=== PATIENT | male | born 1960 ===

== ENCOUNTER 2017-10-30 10:11 | Day surgery (SDC) | payer MEDICAID ==
[2017-10-25 13:35] VITALS: BMI 34.4
[2017-10-30] MEDS ORDERED: Lidocaine PF 2% (5 ml) Inj (For Cardiac Arrhy) ONE ×2 (10:56→12:04)
[2017-10-30] MEDS ORDERED: Verapamil 2 ML ONE (10:57)
[2017-10-30 10:58] LABS: BASO # 0.03 K/mm3 (0.0-2.0); BASO % 0.3 % (0.0-3.0); EOS # 0.1 (0.0-0.7); EOS % 1.4 % (1.5-5.0); GRAN # 6.72 (1.4-6.5); GRAN % 72.9 % (50.0-68.0); HEMOGLOBIN 14.3 g/dL (14.0-18.0); LYMPH # 1.8 (1.2-3.4); MEAN CELL VOLUME 85.7 fl (80.0-105.0); MEAN PLATELET VOLUME 11.2 fl (7.0-11.0); MONO # 0.6 (0.1-0.6); MONO % 6.4 % (1.0-6.0); RBC 4.77 10^6/uL (3.5-6.1); RED CELL DISTRIBUTION WIDTH 12.4 % (11.5-14.5); WHITE BLOOD COUNT 9.2 10^3/ul (4.5-11.0)
[2017-10-30] MEDS ORDERED: Nitroglycerin 50mg in D5W 50 MG/250 ML BOTTLE IV ONE (10:58)
[2017-10-30] MEDS ORDERED: Iodixanol 320 MG/ML 200 ML BOTTLE IV ONE (10:58)
[2017-10-30] MEDS ORDERED: Iohexol 350mgl/ml 50 ML ONE (10:58)
[2017-10-30 11:08] LABS: BLOOD UREA NITROGEN 9 mg/dL (7-21); CALCIUM 9.5 mg/dL (8.4-10.5); GFR AFRICAN-AMERICAN > 60; GFR NON-AFRICAN AMERICAN > 60
[2017-10-30] MEDS ORDERED: Midazolam 2 MG/2 ML VIAL ONE ×2 (12:04→12:17)
--- NOTE | 2017-10-30 12:04 | CARD ---
APPROVED REPORT Date of service: 10/30/2017 EKG Measurement Heart [id number] <Conclusion> Normal sinus rhythm Normal ECG
[2017-10-30] MEDS ORDERED: Adenosine 90 mg/30mL IV ONE (12:15)
[2017-10-30] MEDS ORDERED: Sodium Chloride 0.9% 1,000 ML IV SCH (12:45)
[2017-10-30 13:00] VITALS: RESP 20; TEMP 97.8
[2017-10-30 14:07] VITALS: O2SAT 94
[2017-10-30] MEDS ORDERED: Bacitracin 500 Units/gm Oint Foilpak UD ONE (15:26)
[2017-10-30] MEDS ORDERED: Bacitracin 500 Units/gm Oint Foilpak UD TOP ONE (15:30)
[2017-10-30 15:34] VITALS: BP 156/91; PULSE 57
[2017-10-31 13:47] LABS: PARTIAL THROMBOPLASTIN TIME 27.7 Seconds (25.1-36.5); PROTHROMBIN TIME 11.5 SECONDS (9.4-12.5)
--- NOTE | 2017-11-12 11:00 | CARDCATH ---
Copied To: Kurt Marcum MD Attending MD: Kurt Marcum MD PROCEDURE DATE: 10/30/2017 INDICATIONS: Terry Diaz is a 57-year-old male, who was brought to the cardiac record label internship for evaluation of unstable angina and symptoms of chest pain. He has a history of hypertension, questionable sleep apnea. Referred for evaluation of abnormal EKG, was having recurrent episodes of chest pain and therefore underwent a cardiac catheterization via the left radial approach. PROCEDURE PERFORMED: Left heart catheterization with selective left and right coronary angiogram via left radial approach, 6-Azerbaijani left radial arterial access, wrist band for hemostasis. TECHNIQUES OF PROCEDURE: After obtaining informed consent, the patient was brought to the cardiac catheterization suite in post-absorptive and non-sedated state. The patient was prepped and draped in the usual sterile fashion. A 2% lidocaine was used for infiltration of anesthesia. Using modified Seldinger technique, a 6-Azerbaijani sheath was introduced into the left radial artery. Subsequently over a J-wire, JL4 and JR4 diagnostic catheters were used to engage the left and right coronary systems. Angiograms were obtained in different orthogonal views. ANGIOGRAPHIC FINDINGS: Right coronary artery large-sized vessel, gives off PDA and PLV branches, free of any obstructive disease. Proximal spasmodic lesion 40%, mid 30, distal 40, PDA 0%, PLV 0%. Left main large-sized vessel, bifurcates into circ. Circ runs in the AV groove gives off a large obtuse marginal branch. Proximal OM has a 30% stenosis. Left circumflex proximal 0, mid 0, distal 0. LAD is a large-sized vessel, gives off two medium-sized diagonal branches. Mid LAD has a tortuosity, free of any obstructive disease. Proximal 0, mid 0, distal 0. IMPRESSION: Nonobstructive coronary artery disease, normal left ventricular ejection fraction. RECOMMENDATIONS: Continue aggressive medical management, risk factor modification, guideline-directed therapy for nonobstructive coronary artery disease. Kurt Marcum MD
== END 2017-10-30 16:20 | disposition home or self-care (01) ==
LOC: SDSVAS 10:11
PROVIDERS: ATTEND Internal Medicine Interventional Cardiology
DX: I21.29 ST elevation (STEMI) myocardial infarction involving other sites (principal); I25.110 Atherosclerotic heart disease of native coronary artery with unstable angina pectoris; I10 Essential (primary) hypertension
CPT/HCPCS: 36415; 80048; 85025; 85610; 85730; 86850; 86900; 93005; 93458; 99152; C1769; J0153; J1644 ×2; J2250; J3010; J7030; Q9966